=== PATIENT | female | born 1950 | race Caucasian/White ===

== ENCOUNTER 2017-08-06 07:49 | Emergency (ER) | payer BC, MEDICARE ==
[2017-08-06] MEDS ORDERED: HYDROcodone/ACETAMIN 5-325 MG* 1 TAB PO ONE (08:10)
--- NOTE | 2017-08-06 09:26 | RAD ---
HISTORY: Right hand and wrist pain, fall COMPARISONS: None VIEWS: 6, Frontal, lateral, and oblique views of the right wrist with frontal and lateral views of the right hand FINDINGS: BONE DENSITY: Normal. BONES: There is no displaced fracture. JOINTS: There is mild osteoarthritis of the first CMC and interphalangeal joints. ALIGNMENT: There is no dislocation. SOFT TISSUES: Unremarkable. OTHER FINDINGS: None. IMPRESSION: NO ACUTE OSSEOUS INJURY TO THE RIGHT HAND OR WRIST. IF SYMPTOMS PERSIST, RECOMMEND REPEAT IMAGING.
--- NOTE | 2017-08-06 09:30 | RAD ---
Indication: LEFT greater than RIGHT knee pain and limitation in range of motion post fall. Comparison: July 14, 2015 LEFT knee radiographs. Technique: AP, tunnel, sunrise, and crosstable lateral views of the bilateral knees. Report: RIGHT knee: Osteophytosis and moderately severe medial joint space narrowing. Moderately severe joint space narrowing at the lateral facet of the patellofemoral joint. Partial flattening of the femoral-tibial articular surfaces. Trace fluid in the suprapatellar joint recess. Negative for fracture. Mild nonfocal soft tissue edema. LEFT knee: Osteophytosis and moderately severe medial joint space narrowing. Partial flattening of the femoral-tibial articular surfaces. Trace fluid in the suprapatellar joint recess. Negative for fracture. Mild diffuse soft tissue edema. 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 Interval worsening on the LEFT compared with the 2016 exam. Small joint effusions. Negative for fracture.
--- NOTE | 2017-08-06 09:33 | RAD ---
Indication: RIGHT shoulder pain post fall. Comparison: No relevant prior exams available on the [facility] [place] PACS for comparison. Technique: 4 views of the RIGHT shoulder Report: Normal acromioclavicular and glenohumeral joint alignment. Negative for fracture. Severe AC joint osteophytosis and moderately large inferior acromial bone spur. Minimal osteophytic lipping at the glenohumeral joint. Negative for stigmata of calcific tendinopathy. Unremarkable soft tissue contours. IMPRESSION: 1. Negative for fracture or dislocation. 2. Osteoarthritis most marked at the acromioclavicular joint where it is severe.
[2017-08-06 10:27] VITALS: BP 132/85
--- NOTE | 2017-08-08 13:56 | ED ---
Areli bAdul Julia, scribed for Jon Clark MD on 08/06/17 at 0811 . Adult Trauma - HPI Summary HPI Summary: This patient is a 66 year old F presenting to [facility] accompanied by her with a chief complaint of pain to her right shoulder, right hand, and bilateral knees s/p falling up the stairs this morning. The patient rates the pain 10/10 in severity. Pt states she was walking up the steps when her knees gave out and she fell forward onto her knees and right shoulder with her right hand underneath her. Patient denies neck pain, rib pain, head injury, LOC, and elbow pain. Pt is able to ambulate but states lying on her right side bothers her sciatica. Pt reports low back pain and right sided sciatica at baseline. Pt states she about three years ago similarly onto her knees. - History of Current Complaint Chief Complaint: EDTraumaMultiple Stated Complaint: FALL/MULTIPLE INJURIES Time Seen by Provider: 08/06/17 07:57 Hx Obtained From: Patient Mechanism of Injury: Fall Ambulatory at the Scene: Yes Loss of Consciousness: no loss of consciousness Onset/Duration: Still Present Onset of Pain: Immediate Pain Intensity: 10 Pain Scale Used: 0-10 Numeric Location: Other - bilateral knees, right shoulder and hand Associated Signs & Symptoms: Negative: Loss of Consciousness Related History: Similar Episode - Allergy/Home Medications Allergies/Adverse Reactions: Allergies Allergy/AdvReac Type Severity Reaction Status Date / Time No Known Allergies Allergy Verified 08/06/17 08:09 Home Medications: Home Medications Apixaban* [Eliquis*] 5 mg PO BID 08/06/17 [History Confirmed 08/06/17] Cholecalciferol TAB* [Vitamin D TAB*] 1,000 unit PO DAILY 08/06/17 [History Confirmed 08/06/17] Dapagliflozin Propanediol [Farxiga] 5 mg PO DAILY 08/06/17 [History Confirmed ] Dofetilide CAP* [Tikosyn CAP*] 250 mcg PO BID 08/06/17 [History Confirmed ] Lisinopril TAB* [Prinivil TAB*] 20 mg PO DAILY 08/06/17 [History Confirmed 08/06] Magnesium Oxide TAB* [MagOx 400 TAB*] 400 mg PO TID 08/06/17 [History Confirmed 08/06/17] Metoprolol Tartrate TAB* [Lopressor TAB*] 150 mg PO BID 08/06/17 [History Confirmed 08/06/17] Multivitamins/Minerals TAB* [Theragran/minerals TAB*] 1 tab PO DAILY 08/06/17 [ History Confirmed 08/06/17] Simvastatin TAB(NF) [Zocor(NF)] 20 mg PO DAILY 08/06/17 [History Confirmed 08/06] Sitagliptin Phos/Metformin HCl [Janumet 50-1000 mg] 1 tab PO BID 08/06/17 [ History Confirmed 08/06/17] PMH/Surg Hx/FS Hx/Imm Hx Endocrine/Hematology History: Reports: Hx Diabetes - TYPE II- ON ORAL MEDICATION Cardiovascular History: Reports: Hx Hypertension Respiratory History: Reports: Hx Sleep Apnea - current CPAP user GI History: Reports: Hx Gastroesophageal Reflux Disease - ON MEDICATION FOR Musculoskeletal History: Reports: Hx Arthritis - BACK, Other Musculoskeletal History - BONE SPUR LOWER BACK Denies: Hx Osteoporosis Sensory History: Reports: Hx Cataracts, Hx Contacts or Glasses - GLASSES Denies: Hx Hearing Aid Opthamlomology History: Reports: Hx Cataracts, Hx Contacts or Glasses - GLASSES Neurological History: Reports: Other Neuro Impairments/Disorders - sciatica - Surgical History Surgery Procedure, Year, and Place: GALLBLADDER AND APPENDECTOMY-1973. CARDIAC [id number]. LEFT [id number]. LEFT KNEE ARTHROSCOPY-2001 [facility] [place] Hx Anesthesia Reactions: No Infectious Disease History: No Infectious Disease History: Denies: Traveled Outside the [place] in Last 30 Days - Family History Known Family History: Positive: Cardiac Disease, Hypertension - Social History Lives: With Family Alcohol Use: None Substance Use Type: Reports: None Smoking Status (MU): Never Smoked Tobacco Review of Systems Negative: Fever, Chills Negative: Erythema Negative: Sore Throat Negative: Chest Pain Negative: Shortness Of Breath, Cough Negative: Abdominal Pain, Vomiting, Nausea Negative: dysuria, hematuria Positive: Myalgia - bilateral knees, right shoulder, right hand. Negative: Edema Negative: Rash Neurological: Negative - dizziness Negative: Headache, Syncope All Other Systems Reviewed And Are Negative: Yes Physical Exam - Summary Physical Exam Summary: Constitutional: Well-developed, Well-nourished, Alert. (-) Distressed Skin: Warm, Dry HENT: Normocephalic; Atraumatic Eyes: Conjunctiva normal Neck: Musculoskeletal ROM normal neck. (-) JVD, (-) Stridor, (-) Tracheal deviation Cardio: Rhythm regular, rate normal, Heart sounds normal; Intact distal pulses; The pedal pulses are 2+ and symmetric. Radial pulses are 2+ and symmetric. (-) Murmur Pulmonary/Chest wall: Effort normal. (-) Respiratory distress, (-) Wheezes, (-) Rales Abd: Soft, (-) Tenderness, (-) Distension, (-) Guarding, (-) Rebound Musculoskeletal: (-) Edema, R shoulder tenderness, bilateral knee tenderness, tenderness to dorsal right hand, right snuff box tenderness, third and fourth metacarpal tenderness, bilateral patellar tendons intact Lymph: (-) Cervical adenopathy Neuro: Alert, Oriented x3 Psych: Mood and affect Normal Triage Information Reviewed: Yes Vital Signs On Initial Exam: Initial Vitals Temp Pulse Resp BP Pulse Ox 97 F 76 16 135/96 99 08/06/17 07:51 08/06/17 07:51 08/06/17 07:51 08/06/17 07:51 08/06/17 07:51 Vital Signs Reviewed: Yes Procedures - Splinting Location: R thumb spica Hand-Made Type: orthoglass - 3 inch Splint: thumb spica Pre-Proc Neuro Vasc Exam: normal Post-Proc Neuro Vasc Exam: normal Diagnostics - Vital Signs Vital Signs Temp Pulse Resp BP Pulse Ox 08/06/17 07:51 97 F 76 16 135/96 99 - Laboratory Lab Statement: Any lab studies that have been ordered have been reviewed, and results considered in the medical decision making process. - Radiology R Wrist XR Radiology Interpretation Completed By: Radiologist - NO ACUTE OSSEOUS INJURY TO THE RIGHT HAND OR WRIST. IF SYMPTOMS PERSIST, RECOMMEND REPEAT IMAGING. ED Physician has reviewed this report. R Shoulder XR Radiology Interpretation Completed By: Radiologist - 1. Negative for fracture or dislocation. 2. Osteoarthritis most marked at the acromioclavicular joint where it is severe. ED Physician has reviewed this report. 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 Interval worsening on the LEFT compared with the 2016 exam. Small joint effusions. Negative for fracture. ED Physician has reviewed this report. Hand XR Radiology Interpretation Completed By: Radiologist - NO ACUTE OSSEOUS INJURY TO THE RIGHT HAND OR WRIST. IF SYMPTOMS PERSIST, RECOMMEND REPEAT IMAGING. ED Physician has reviewed this report. Re-Evaluation - Re-Evaluation 1 Re-Evaluation Time: 09:55 Comment: Informed pt of imaging results. Recommended splint and repeat imagining due to R snuff box pain. A thumb spica is placed. Adult Trauma Course/Dx - Course Course Of Treatment: Pt presents s/p fall this morning. She fell onto bilateral knees and to R shoulder with right wrist below her. A Shoulder, wrist, and bilateral knee XR reveal OA but no acute fractures. Due to pain in R snuff box I recommended repeat imaging. A R thumb spica is placed. Pt is instructed to not bend the right thumb and to not get the splint wet. Pt is given a sling. Pt is ambulatory without significant distress while in ED. Pt is instructed to follow up with an orthopedist. Pt is given Hydrocodone for pain. Pt is given prescription for Tramadol. - Diagnoses Provider Diagnoses: Knee contusion, Right wrist pain, Right shoulder pain, Osteoarthritis Discharge - Sign-Out/Discharge Documenting (check all that apply): Discharge/Admit/Transfer - discharge - Discharge Plan Condition: Stable Disposition: HOME Prescriptions: traMADol TAB* [Ultram*] 50 mg PO Q6HR PRN #10 tab MDD 4 PRN Reason: Pain - Moderate To Severe Patient Education Materials: Osteoarthritis (ED), Fall Prevention for Older Adults (ED) Referrals: Vikki Whyte MD [Primary Care Provider] - Richar Guzman MD [Medical Doctor] - 1 Week (Follow up with Dr. Ortez regarding your visit today. ) The documentation as recorded by the Areli hess Julia accurately reflects the service I personally performed and the decisions made by me, Jon Clark MD.
== END 2017-08-06 10:26 | disposition home or self-care (01) ==
LOC: ED 07:49
DX: S80.02XA Contusion of left knee, initial encounter (principal); S80.01XA Contusion of right knee, initial encounter; M25.511 Pain in right shoulder; M25.531 Pain in right wrist; W10.9XXA Fall (on) (from) unspecified stairs and steps, initial encounter; Y92.9 Unspecified place or not applicable; M19.90 Unspecified osteoarthritis, unspecified site
CPT/HCPCS: 99282

== ENCOUNTER 2017-11-16 05:15 | Emergency (ER) | payer MEDICARE ==
[2017-11-16] MEDS ORDERED: Famotidine IV* 10 MG/ML 2 ML (20 mg) IV SLOW PU ONE (05:45)
--- NOTE | 2017-11-16 05:55 | ED ---
HPI Chest Pain - HPI Summary HPI Summary: Patient is a 67-year-old female with a history of diabetes, HTN, A. fib and obesity presenting to the ED with a cc of left sided chest pain which is located just to the left of the lower midsternal area. Pain does not radiate. Denies any shortness of breath. She states pain started at home after returning from the restroom approximately 1 hour [employer]. She endorses a history of heartburn for which she has taken omeprazole for several years until she ran out of this medication 2 weeks ago. She also endorses eating a lot of spicy sausages last evening which is not normal for her. She tried to take Tums without relief at home and decided to come to the ED. She called the ambulance who has given her 4 baby aspirin and one nitroglycerin en route without relief of symptoms. Medications include metformin, acarbose, glipizide, lisinopril, and metoprolol, simvastatin. Also history of right heart ablation in 2013 and 2015. She denies any recent travel, calf pain, known malignancy. Denies any episodes of diaphoresis during this time, denies fevers or chills. Family history of hypertension and other ACD. History of stroke in the 80s secondary to blood, from unknown origin, however she was not placed on blood thinners at that time. - History of Current Complaint Chief Complaint: EDChestPainROMI Time Seen by Provider: 11/16/17 05:32 Hx Obtained From: Patient Onset/Duration: Started Hours Ago Timing: Constant Initial Severity: Moderate Current Severity: Mild Pain Intensity: 7 Pain Scale Used: 0-10 Numeric Chest Pain Radiates: No Character: Dull/Aching Aggravating Factor(s): Nothing Alleviating Factor(s): Nothing Associated Signs and Symptoms: Positive: Negative - Risk Factors Pulmonary Embolism Risk Factors: Negative TAD Risk Factors: Negative AMI/ACS Risk Factors: Sedentary Lifestyle, Diabetes, Obesity, Family History, Hypertension, Dyslipidemia - Allergy/Home Medications Allergies/Adverse Reactions: Allergies Allergy/AdvReac Type Severity Reaction Status Date / Time No Known Allergies Allergy Verified 08/06/17 08:09 Home Medications: Home Medications Acarbose [Precose] 25 mg PO TID 11/16/17 [History Confirmed 11/16/17] Albuterol HFA INHALER* [Ventolin HFA Inhaler*] 2 puff INH Q4H PRN 11/16/17 [ History Confirmed 11/16/17] Nystatin TOP POWDER* 1 applic TOPICAL BID PRN 11/16/17 [History Confirmed ] PMH/Surg Hx/FS Hx/Imm Hx Previously Healthy: Yes Endocrine/Hematology History: Reports: Hx Diabetes - TYPE II- ON ORAL MEDICATION Cardiovascular History: Reports: Hx Hypertension Respiratory History: Reports: Hx Sleep Apnea - current CPAP user GI History: Reports: Hx Gastroesophageal Reflux Disease - ON MEDICATION FOR Musculoskeletal History: Reports: Hx Arthritis - BACK, Other Musculoskeletal History - BONE SPUR LOWER BACK Denies: Hx Osteoporosis Sensory History: Reports: Hx Cataracts, Hx Contacts or Glasses - GLASSES Denies: Hx Hearing Aid Opthamlomology History: Reports: Hx Cataracts, Hx Contacts or Glasses - GLASSES Neurological History: Reports: Other Neuro Impairments/Disorders - sciatica - Surgical History Surgery Procedure, Year, and Place: GALLBLADDER AND APPENDECTOMY-1973. CARDIAC [id number]. LEFT [id number]. [place] [facility] [place] Anesthesia Reactions: No Infectious Disease History: No Infectious Disease History: Denies: Traveled Outside the [place] in Last 30 Days - Family History Known Family History: Positive: Cardiac Disease, Hypertension - Social History Occupation: Unemployed Lives: With Family Alcohol Use: None Hx Substance Use: No Substance Use Type: Reports: None Hx Tobacco Use: No Smoking Status (MU): Never Smoked Tobacco Review of Systems Constitutional: Negative Negative: Fever, Chills, Fatigue, Skin Diaphoresis Positive: Chest Pain. Negative: Palpitations Negative: Shortness Of Breath, Cough Negative: Abdominal Pain, Vomiting, Diarrhea, Nausea Negative: Headache, Weakness, Paresthesia, Numbness Psychological: Normal All Other Systems Reviewed And Are Negative: Yes Physical Exam Triage Information Reviewed: Yes Vital Signs On Initial Exam: Initial Vitals Temp Pulse Resp BP Pulse Ox 97.1 F 118 22 137/83 96 11/16/17 05:19 11/16/17 05:19 11/16/17 05:19 11/16/17 05:19 11/16/17 05:19 Vital Signs Reviewed: Yes Appearance: Positive: Well-Appearing, Well-Nourished Skin: Positive: Warm, Skin Color Reflects Adequate Perfusion Head/Face: Positive: Normal Head/Face Inspection Eyes: Positive: EOMI, BINH, Conjunctiva Clear Neck: Positive: Supple, No Lymphadenopathy Respiratory/Lung Sounds: Positive: Clear to Auscultation, Breath Sounds Present Cardiovascular: Positive: Normal, RRR, Pulses are Symmetrical in both Upper and Lower Extremities Musculoskeletal: Positive: Normal, Strength/ROM Intact Neurological: Positive: Speech Normal Psychiatric: Positive: Normal, Affect/Mood Appropriate AVPU Assessment: Alert Diagnostics - Vital Signs Vital Signs Temp Pulse Resp BP Pulse Ox 11/16/17 05:19 97.1 F 118 22 137/83 96 - Laboratory Result Diagrams: 11/16/17 06:10 11/16/17 06:10 Lab Statement: Any lab studies that have been ordered have been reviewed, and results considered in the medical decision making process. Chest Pain Course/Dx - Course Course Of Treatment: During the course of treatment, the patient is evaluated for left-sided chest pain without radiation. She states she is beginning to feel improved after arrival, however she did not improve with in real medications of 4 baby aspirin and nitroglycerin. On arrival she is confirmed atrial fibrillation with a rate of 103. She states she discontinued her at home omeprazole for her heartburn 2 weeks ago and states she had several spicy sausages last evening. Denies any mid epigastric pain or tenderness. Pain is described as an aching. Lactic 3.1. Troponin obtained at 6:10 AM and 7:37 AM at 0.01 without elevations. Chest x-ray obtained which is negative for acute cardiopulmonary disease. Glucose obtained in is 335, however patient endorses not taking her morning diabetes medications. She is feeling much improved, denies any pain currently, is not diaphoretic, is ANO 3. And is feeling well. During the course of treatment, she is given 2 L NS for her lactic and famotidine 40mg with good relief. She is okay for discharge at this time due to 2 negative troponins and is asymptomatic. Throughout her stay she is in and out of tachycardia and normocardia, however she remains in afib throughout. She states this is normal for her. Tachycardia only while patient in motion. She will return for any worsening or changing symptoms. Omeprazole prescription sent to pharmacy. - Chest Pain Differential Diagnosis/HQI/PQRI: Acute MN, ACS, Chest Wall - Diagnoses Provider Diagnoses: Atypical chest pain Discharge - Sign-Out/Discharge Documenting (check all that apply): Patient Departure - Discharge Plan Condition: Stable Disposition: HOME Prescriptions: Omeprazole CAP* [Prilosec CAP* 20 MG] 20 mg PO SEE INSTRUCTIONS #30 maria. Patient Education Materials: Chest Pain (ED) Referrals: Vikki Whyte MD [Primary Care Provider] - Additional Instructions: If symptoms worsen, return to the ED immediately - Billing Disposition and Condition Condition: STABLE Disposition: Home
[2017-11-16] MEDS ORDERED: NS 0.9% 1000 ML* 1,000 ML IV ONE (05:56)
[2017-11-16 06:24] LABS: ABS Basophils 0.1 10^3/ul (0-0.2); ABS Eosinophils 0.1 10^3/ul (0-0.6); ABS Monocytes 0.6 10^3/ul (0-0.8); ABS Nucleated RBC 0 10^3/ul; Eosinophil % 0.6 % (0-6); Hematocrit 40 % (35-47); Hemoglobin 13.1 g/dl (12.0-16.0); Lymphocyte % 10.1 % (25-47); Mean Corpuscular HGB Conc 33 g/dl (31-36); Mean Corpuscular Hemoglobin 27 pg (27-31); Mean Corpuscular Volume 82 fL (80-97); Mean Platelet Volume 7.8 um3 (7.4-10.4); Nucleated Red Blood Cells % 0; Platelet Count 175 10^3/ul (150-450); Red Blood Count 4.87 10^6/ul (4.00-5.40); Red Cell Distribution Width 16 % (10.5-15); White Blood Count 9.7 10^3/ul (3.5-10.8)
[2017-11-16 06:32] LABS: INR 0.86 (0.77-1.02)
[2017-11-16 06:41] LABS: EGFR Non-African American 41.8 (>60)
--- NOTE | 2017-11-16 08:21 | RAD ---
Indication: Chest pain. Single frontal view of the chest performed at 0546 hours was reviewed. Comparison is made with previous exam dated October 18, 2003. No mediastinal shift is noted. Heart is of normal size and configuration. Lung mcnair appear clear. IMPRESSION: NO ACTIVE CARDIOPULMONARY DISEASE IS NOTED. R1
[2017-11-16 09:13] VITALS: BP 140/97
== END 2017-11-16 09:12 | disposition home or self-care (01) ==
LOC: ED 05:15
DX: R07.89 Other chest pain (principal); E11.9 Type 2 diabetes mellitus without complications; E66.9 Obesity, unspecified; Z79.84 Long term (current) use of oral hypoglycemic drugs
CPT/HCPCS: 36415; 71045; 80053; 82550; 83605; 84484; 85025; 85379; 85610; 93005; 96374; 96375; 99283